=== PATIENT | male | born 1960 | race American Indian/Alaskan Native ===

== ENCOUNTER 2017-10-08 14:19 | Emergency (ER) | payer SELFPAY ==
--- NOTE | 2017-10-08 15:44 | XRay Report ---
LEFT SHOULDER: History: Left shoulder pain. Routine views demonstrate normal bony and soft tissue structures with normal joint alignment of the shoulder. IMPRESSION: Normal study.
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
[2017-10-08 19:15] VITALS: BP 142/72
== END 2017-10-08 18:40 | disposition home or self-care (01) ==
LOC: ED 14:19
DX: M25.512 Pain in left shoulder (principal); M79.1 Myalgia; Z88.0 Allergy status to penicillin; V89.0XXA Person injured in unspecified motor-vehicle accident, nontraffic, initial encounter; Y93.89 Activity, other specified; Y92.89 Other specified places as the place of occurrence of the external cause; Y99.8 Other external cause status
CPT/HCPCS: 99283